=== PATIENT | female | born 1985 | race Caucasian/White ===

== ENCOUNTER 2025-02-18 08:28 | Outpatient (CLI) | payer SELFPAY ==
--- NOTE | 2025-02-18 08:39 | MM_ITS ---
WS: [id number] SCREENING DIGITAL BREAST TOMOSYNTHESIS MAMMOGRAM WITH CAD HISTORY: SCREENING COMPARISON: None available. Bilateral CC and MLO with tomosynthesis and synthetic mammography submitted. Computer aided detection analyzed. Breast composition: There are scattered areas of fibroglandular density. Slightly lobulated mass of increased density posterior RIGHT breast measures 4 x 6 x 5 mm. This is central to the nipple and posterior depth. On the lateral projection this may be a lymph node. No additional abnormalities. No suspicious grouping of calcifications. MM/MM scr BI tomosynthesis [id number] IMPRESSION: BI-RADS: 0 - Incomplete: Need additional imaging evaluation. FOLLOW UP: Need Additional Imaging RIGHT breast: Spot compression views (CC and MLO). True ML. Ultrasound to follo w if abnormality persists.
== END 2025-02-18 08:29 | disposition home or self-care (01) ==
LOC: RAD 08:31
PROVIDERS: Visit Provider Nurse Practitioner Family
DX: Z12.31 Encounter for screening mammogram for malignant neoplasm of breast (principal); R92.323 Mammographic fibroglandular density, bilateral breasts; N63.10 Unspecified lump in the right breast, unspecified quadrant
CPT/HCPCS: 77063; 77067

== ENCOUNTER 2025-04-09 07:57 | Outpatient (CLI) | payer SELFPAY ==
--- NOTE | 2025-04-09 08:17 | MM_ITS ---
WS: [id number] ADDITIONAL VIEWS RIGHT MAMMOGRAM WITH DIGITAL BREAST TOMOSYNTHESIS. RIGHT BREAST ULTRASOUND HISTORY: ABNORMAL MAMMO COMPARISON: 02/18/2025 RIGHT MAMMOGRAM: Spot compression views and true ML with digital breast tomosynthesis and SM. Breast composition: There are scattered areas of fibroglandular density. Reidentified is the poorly circumscribed measuring 4 x 5 mm in the posterior RIGHT breast near 12:00. No additional abnormality. Ultrasound to follow. RIGHT BREAST ULTRASOUND 2-D and color Doppler imaging submitted. No ultrasound abnormality is noted in the posterior superior RIGHT breast in the upper outer quadrant. Suspect this may be a lymph node that blends in with the adjacent soft tissues. There is no shadowing or cyst. MM/MM diag RT tomosynthesis [id number] IMPRESSION: BI-RADS: 3 - Probably Benign. FOLLOW UP: 6 Month Follow-up Recommend 6-month follow-up RIGHT mammogram and possible ultrasound to reevalua te this small asymmetry in the superior posterior RIGHT breast. This asymmetry is not identified by ultrasound. Suspect this may be normal fibroglandular tiss ue or a benign lymph node.
== END 2025-04-09 07:58 | disposition home or self-care (01) ==
LOC: RAD 07:59
PROVIDERS: Visit Provider Nurse Practitioner Family
DX: R92.8 Other abnormal and inconclusive findings on diagnostic imaging of breast (principal); R92.321 Mammographic fibroglandular density, right breast
CPT/HCPCS: 76642; 77061; G0279